=== PATIENT | male | born 1990 | race American Indian/Alaskan Native ===

== ENCOUNTER 2016-07-25 13:50 | Emergency (ER) | payer SELFPAY ==
[2016-07-25 14:09] VITALS: BP 128/95
--- NOTE | 2016-07-25 15:31 | Emergency Department Report ---
HPI - General Chief Complaint: Dental/Oral Time Seen by Provider: 07/25/16 15:28 - HPI HPI: Patient here complaining of toothache to the left back tooth. He said he had this before and he said he bit on something and just was already cracked and started complaining of left lower back to 10 out of 10. Pain is achy and he took a Klonopin medicine without any relief. Denies any swelling to face. Denies any fever or chills. Denies any sore throat, drooling, cough and or difficulty swallowing. ED Past Medical Hx - Past Medical History Previous Medical History?: Yes Hx Asthma: Yes - Surgical History Past Surgical History?: No - Family History Family history: diabetes, hypertension - Social History Smoking Status: Current Every Day Smoker Substance Use Type: Alcohol - Medications Home Medications: Home Medications Medication Instructions Recorded Confirmed Last Taken Type Amoxicillin [Amoxicillin TAB] 875 mg PO BID #20 tablet 07/25/16 Unknown Rx Ibuprofen [Motrin] 600 mg PO Q8H PRN #15 tablet 07/25/16 Unknown Rx ED Review of Systems ROS: Stated complaint: POSS INFECTED TOOTH/GUM PAIN Other details as noted in HPI Comment: All other systems reviewed and negative Constitutional: denies: chills, fever Eyes: denies: eye pain, vision change ENT: dental pain. denies: ear pain, throat pain, congestion Respiratory: no symptoms reported Cardiovascular: denies: chest pain, palpitations, edema, syncope Gastrointestinal: denies: nausea, vomiting Musculoskeletal: denies: back pain, arthralgia Skin: denies: rash Neurological: denies: headache, weakness, numbness, paresthesias, confusion, abnormal gait, vertigo Physical Exam - Physical Exam Vital Signs: Vital Signs 07/25/16 14:07 Temperature 98.4 F Pulse Rate 56 L Respiratory 16 Rate Blood Pressure 128/95 O2 Sat by Pulse 100 Oximetry General: This is a 26-year-old male well-nourished well-developed in no acute distress. Physical Exam: Head: Normocephalic atraumatic Mouth: Moist, no pharyngeal exudate or erythema. Uvula is midline and oral airway is patent. Positive gingival enlargement. dental tenderness tooth #32 with erythema. No induration or fluctuance. No facial swelling. No peritonsillar abscesses. No trismus, tongue is normal. Positive dental caries Neck: Supple, no C-spine tenderness, no tracheal deviation. Nontender to palpate. no adenopathy Ears: Bilateral TMs pearly payne .bilateral EAC without any redness swelling or drainage Eyes: Bilateral pupils equal and reactive to light, bilateral EOM intact. Bilateral sclera and conjunctiva without injection. Normal accommodation Nose: Mucosa moist, Nl mucosa. maxillary and frontal sinus non-tender to palpate. Lungs: Clear to auscultate bilaterally no rhonchi wheezes or rales. Normal work of breathing extremity; No CCE. +2 pulses. No neurovascular compromise Cardiovascular: S1-S2, regular rate rhythm. No murmurs. Skin: clean Dry and intact no rash no lesions Psych: Normal mood and behavior ED Course Vital Signs 07/25/16 14:07 Temperature 98.4 F Pulse Rate 56 L Respiratory 16 Rate Blood Pressure 128/95 O2 Sat by Pulse 100 Oximetry - Reevaluation(s) Reevaluation #1: 07/25/16 16:10 Patient with message to 2 times in the emergency room. ED Medical Decision Making - Medical Decision Making ED Course: Here complaining of toothache and with poor dental care. He has dental caries, gingival enlargement and cellulitis around tooth #32. Patient does not have a dentist and I instructed them that I will place him on antibiotic and pain medication but he will need to follow up with a dentist for discharge instruction paperwork for phone number and address this dentist. He was understanding the diagnosis and treatment plan and discharged home with prescription for Motrin and amoxicillin. Pt is referred to [facility] dental clinic. Received [place] 5/325 mg 2 tablets emergency room. Critical care attestation.: If time is entered above; I have spent that time in minutes in the direct care of this critically ill patient, excluding procedure time. ED Disposition Clinical Impression: Tooth ache, Dental caries, Oral cellulitis, Enlargement, gingival Disposition: DC-01 TO HOME OR SELFCARE Is pt being admited?: No Does the pt Need Aspirin: No Condition: Stable Instructions: Gingivitis (ED), Dental Caries (ED), Toothache (ED), Cellulitis ( ED) Additional Instructions: Please follow up with [facility] dental clinic as instructed take medication as instructed Listerine mouth wash to gargle and spit 3 times a day and please floss Prescriptions: Amoxicillin [Amoxicillin TAB] 875 mg PO BID #20 tablet Ibuprofen [Motrin] 600 mg PO Q8H PRN #15 tablet PRN Reason: Pain Referrals: [facility] [Outside] - 3-5 Days [facility] [Outside] - 3-5 Days Forms: Work/School Release Form(ED)
[2016-07-25] MEDS ORDERED: NORCO 5/325 PO ONE (16:09)
== END 2016-07-25 16:24 | disposition home or self-care (01) ==
LOC: ED 13:50
DX: K02.9 Dental caries, unspecified (principal); K06.1 Gingival enlargement; K12.2 Cellulitis and abscess of mouth; J45.909 Unspecified asthma, uncomplicated; F17.200 Nicotine dependence, unspecified, uncomplicated
CPT/HCPCS: 99282

== ENCOUNTER 2016-07-26 23:11 | Emergency (ER) | payer SELFPAY ==
[2016-07-27] MEDS ORDERED: NORCO 5/325 PO ONE (02:38)
--- NOTE | 2016-07-27 02:41 | Emergency Department Report ---
ED ENT HPI - General Chief complaint: Dental/Oral Stated complaint: JAW PAIN Source: patient Mode of arrival: Ambulatory Limitations: No Limitations - History of Present Illness Initial comments: 18-year-old male past medical history none presents complaining of one week of left-sided toothache. Patient states he was in the ED a few days ago prescribed Motrin and amoxicillin. Patient states that pain is slightly worse than usual. Denies any fever chills began. Since his denies any pus or blood drainage from mouth. Patient states that he is seeking out a dental appointment actively to remove a severely carried tooth. MD complaint: tooth pain Onset/Timin -: week(s) Time: 18:00 Location: tooth # Severity: moderate Severity scale (0 -10): 5 Quality: aching Consistency: constant Worsens with: eating Context- Dental: history of dental caries Associated Symptoms: toothache - Related Data Previous Rx's Medication Instructions Recorded Last Taken Type Amoxicillin [Amoxicillin TAB] 875 mg PO BID #20 tablet 07/25/16 Unknown Rx Ibuprofen [Motrin] 600 mg PO Q8H PRN #15 tablet 07/25/16 Unknown Rx Acetaminophen/Codeine [Tylenol 1 tab PO Q6H PRN #12 tab 07/27/16 Unknown Rx /Codeine # 3 tab] Benzocaine [Orajel Liquid 20%] 1 ml MM Q6HR PRN #1 bottle 07/27/16 Unknown Rx Chlorhexidine Mouthwash [Peridex] 118 ml MM BID #1 bottle 07/27/16 Unknown Rx Allergies Allergy/AdvReac Type Severity Reaction Status Date / Time No Known Allergies Allergy Verified 07/25/16 14:10 ED Dental HPI - General Chief complaint: Dental/Oral Stated complaint: JAW PAIN Source: patient Mode of arrival: Ambulatory Limitations: No Limitations - Related Data Previous Rx's Medication Instructions Recorded Last Taken Type Amoxicillin [Amoxicillin TAB] 875 mg PO BID #20 tablet 07/25/16 Unknown Rx Ibuprofen [Motrin] 600 mg PO Q8H PRN #15 tablet 07/25/16 Unknown Rx Acetaminophen/Codeine [Tylenol 1 tab PO Q6H PRN #12 tab 07/27/16 Unknown Rx /Codeine # 3 tab] Benzocaine [Orajel Liquid 20%] 1 ml MM Q6HR PRN #1 bottle 07/27/16 Unknown Rx Chlorhexidine Mouthwash [Peridex] 118 ml MM BID #1 bottle 07/27/16 Unknown Rx Allergies Allergy/AdvReac Type Severity Reaction Status Date / Time No Known Allergies Allergy Verified 07/25/16 14:10 ED Review of Systems ROS: Stated complaint: JAW PAIN Other details as noted in HPI Constitutional: denies: chills, fever Eyes: denies: eye pain, eye discharge, vision change ENT: dental pain. denies: ear pain, throat pain Respiratory: denies: cough, shortness of breath, wheezing Cardiovascular: denies: chest pain, palpitations Endocrine: no symptoms reported Gastrointestinal: denies: abdominal pain, nausea, diarrhea Genitourinary: denies: urgency, dysuria Musculoskeletal: denies: back pain, joint swelling, arthralgia Skin: denies: rash, lesions Neurological: denies: headache, weakness, paresthesias Psychiatric: denies: anxiety, depression Hematological/Lymphatic: denies: easy bleeding, easy bruising ED Past Medical Hx - Past Medical History Previous Medical History?: Yes Hx Asthma: Yes - Surgical History Past Surgical History?: No - Social History Smoking Status: Never Smoker Substance Use Type: Marijuana - Medications Home Medications: Home Medications Medication Instructions Recorded Confirmed Last Taken Type Amoxicillin [Amoxicillin TAB] 875 mg PO BID #20 tablet 07/25/16 Unknown Rx Ibuprofen [Motrin] 600 mg PO Q8H PRN #15 tablet 07/25/16 Unknown Rx Acetaminophen/Codeine [Tylenol 1 tab PO Q6H PRN #12 tab 07/27/16 Unknown Rx /Codeine # 3 tab] Benzocaine [Orajel Liquid 20%] 1 ml MM Q6HR PRN #1 bottle 07/27/16 Unknown Rx Chlorhexidine Mouthwash [Peridex] 118 ml MM BID #1 bottle 07/27/16 Unknown Rx ED Physical Exam - General Limitations: No Limitations General appearance: alert, in no apparent distress - Head Head exam: Present: atraumatic, normocephalic - Eye Eye exam: Present: normal appearance, PERRL, EOMI - ENT ENT exam: Present: mucous membranes moist - Expanded ENT Exam Expanded Teeth exam: Present: dental caries, dental tenderness # (tooth tenderness/ toothache at tooth #17 and 18) 1 - Dental Tenderness (multiple dental cavities here, no visible abscess no signs of Horacio's angina and no induration and floor of mouth or tongue) - Neck Neck exam: Present: normal inspection - Respiratory Respiratory exam: Present: normal lung sounds bilaterally. Absent: respiratory distress - Cardiovascular Cardiovascular Exam: Present: regular rate, normal rhythm. Absent: systolic murmur, diastolic murmur, rubs, gallop - GI/Abdominal GI/Abdominal exam: Present: soft, normal bowel sounds - Rectal Rectal exam: Present: deferred - Extremities Exam Extremities exam: Present: normal inspection - Back Exam Back exam: Present: normal inspection - Neurological Exam Neurological exam: Present: alert, oriented X3 - Psychiatric Psychiatric exam: Present: normal affect, normal mood - Skin Skin exam: Present: warm, dry, intact, normal color. Absent: rash ED Course Vital Signs 07/26/16 07/27/16 23:59 03:11 Temperature 99.1 F Pulse Rate 63 75 Respiratory 63 H 18 Rate Blood Pressure 120/71 116/79 [Right] O2 Sat by Pulse 100 99 Oximetry ED Medical Decision Making - Medical Decision Making A/P: Dental cavity 1-Motrin and amoxicillin, will add Orajel, short course Tylenol 3, Peridex mouthwash 2-patient advised to follow up as soon as possible for dental cavity. I advised patient that lack of follow-up and untreated dental cavity can result in infection to come his face and jaw and if left untreated can progress to sepsis and become lethal. Patient understood these instructions and agreed to follow-up on outpatient basis with dentist as soon as possible. 3-advised to return to ED [facility] for any significant bleeding pus drainage from oral cavity inability to tolerate by mouth, dyspnea shortness of breath muffled voice and/or stridor Critical care attestation.: If time is entered above; I have spent that time in minutes in the direct care of this critically ill patient, excluding procedure time. ED Disposition Clinical Impression: Pain, dental Disposition: DC-01 TO HOME OR SELFCARE Is pt being admited?: No Does the pt Need Aspirin: No Condition: Stable Instructions: Benzocaine (By mouth), Dental Caries (ED), Toothache (ED) Prescriptions: Acetaminophen/Codeine [Tylenol /Codeine # 3 tab] 1 tab PO Q6H PRN #12 tab PRN Reason: Pain Benzocaine [Orajel Liquid 20%] 1 ml MM Q6HR PRN #1 bottle PRN Reason: Toothache Chlorhexidine Mouthwash [Peridex] 118 ml MM BID #1 bottle Referrals: [facility] [Outside] - 3-5 Days Forms: Work/School Release Form(ED) Time of Disposition: 02:41
[2016-07-27 03:11] VITALS: BP 116/79
== END 2016-07-27 03:11 | disposition home or self-care (01) ==
LOC: ED 23:11
DX: K08.89 Other specified disorders of teeth and supporting structures (principal); J45.909 Unspecified asthma, uncomplicated; F12.10 Cannabis abuse, uncomplicated
CPT/HCPCS: 99282

== ENCOUNTER 2016-08-30 01:24 | Emergency (ER) | payer SELFPAY ==
--- NOTE | 2016-08-30 04:31 | Emergency Department Report ---
ED ENT HPI - General Chief complaint: Dental/Oral Stated complaint: TOOTHACHE W/LT JAW SWELLING Time Seen by Provider: 08/30/16 03:33 Source: patient Mode of arrival: Ambulatory Limitations: No Limitations - History of Present Illness Initial comments: Patient comes into the ER today with complaints of left lower tooth pain for the past 4 days. Patient denies any new injury. Patient states that he was here approximately one month ago for the same complaint. Patient states that the medicine that was given here last time did help but he never had the teeth extracted. Patient does state that he went to the dentist and when he was seen by the dentist he was told to come back, and all the swelling was gone. Patient never went back after the swelling was gone and now he believes it is coming back again. Patient states that his left jaw started swelling about 3 days ago. Patient denies any fever, body aches, chills. MD complaint: tooth pain - Related Data Previous Rx's Medication Instructions Recorded Last Taken Type Amoxicillin [Amoxicillin TAB] 875 mg PO BID #20 tablet 07/25/16 Unknown Rx Ibuprofen [Motrin] 600 mg PO Q8H PRN #15 tablet 07/25/16 Unknown Rx Acetaminophen/Codeine [Tylenol 1 tab PO Q6H PRN #12 tab 07/27/16 Unknown Rx /Codeine # 3 tab] Benzocaine [Orajel Liquid 20%] 1 ml MM Q6HR PRN #1 bottle 07/27/16 Unknown Rx Chlorhexidine Mouthwash [Peridex] 118 ml MM BID #1 bottle 07/27/16 Unknown Rx Acetaminophen/Codeine [Tylenol 1 tab PO Q6H PRN #15 tab 08/30/16 Unknown Rx /Codeine # 3 tab] Amoxicillin/K Clav Tab [Augmentin 1 tab PO Q12HR #20 tab 08/30/16 Unknown Rx 875 mg] Chlorhexidine Mouthwash [Peridex] 118 ml MM BID #1 bottle 08/30/16 Unknown Rx Allergies Allergy/AdvReac Type Severity Reaction Status Date / Time No Known Allergies Allergy Verified 07/25/16 14:10 ED Dental HPI - General Chief complaint: Dental/Oral Stated complaint: TOOTHACHE W/LT JAW SWELLING Time Seen by Provider: 08/30/16 03:33 Source: patient Mode of arrival: Ambulatory Limitations: No Limitations - Related Data Previous Rx's Medication Instructions Recorded Last Taken Type Amoxicillin [Amoxicillin TAB] 875 mg PO BID #20 tablet 07/25/16 Unknown Rx Ibuprofen [Motrin] 600 mg PO Q8H PRN #15 tablet 07/25/16 Unknown Rx Acetaminophen/Codeine [Tylenol 1 tab PO Q6H PRN #12 tab 07/27/16 Unknown Rx /Codeine # 3 tab] Benzocaine [Orajel Liquid 20%] 1 ml MM Q6HR PRN #1 bottle 07/27/16 Unknown Rx Chlorhexidine Mouthwash [Peridex] 118 ml MM BID #1 bottle 07/27/16 Unknown Rx Acetaminophen/Codeine [Tylenol 1 tab PO Q6H PRN #15 tab 08/30/16 Unknown Rx /Codeine # 3 tab] Amoxicillin/K Clav Tab [Augmentin 1 tab PO Q12HR #20 tab 08/30/16 Unknown Rx 875 mg] Chlorhexidine Mouthwash [Peridex] 118 ml MM BID #1 bottle 08/30/16 Unknown Rx Allergies Allergy/AdvReac Type Severity Reaction Status Date / Time No Known Allergies Allergy Verified 07/25/16 14:10 ED Review of Systems ROS: Stated complaint: TOOTHACHE W/LT JAW SWELLING Other details as noted in HPI Constitutional: denies: chills, fever Eyes: denies: eye pain, eye discharge, vision change ENT: dental pain. denies: ear pain, throat pain, hearing loss, epistaxis, congestion Respiratory: denies: cough, shortness of breath, wheezing Cardiovascular: denies: chest pain, palpitations Endocrine: no symptoms reported Gastrointestinal: denies: abdominal pain, nausea, diarrhea Genitourinary: denies: urgency, dysuria Musculoskeletal: denies: back pain, joint swelling, arthralgia Skin: denies: rash, lesions Neurological: denies: headache, weakness, paresthesias Psychiatric: denies: anxiety, depression Hematological/Lymphatic: denies: easy bleeding, easy bruising ED Past Medical Hx - Past Medical History Previous Medical History?: Yes Hx Asthma: Yes - Social History Smoking Status: Current Every Day Smoker - Medications Home Medications: Home Medications Medication Instructions Recorded Confirmed Last Taken Type Amoxicillin [Amoxicillin TAB] 875 mg PO BID #20 tablet 07/25/16 Unknown Rx Ibuprofen [Motrin] 600 mg PO Q8H PRN #15 tablet 07/25/16 Unknown Rx Acetaminophen/Codeine [Tylenol 1 tab PO Q6H PRN #12 tab 07/27/16 Unknown Rx /Codeine # 3 tab] Benzocaine [Orajel Liquid 20%] 1 ml MM Q6HR PRN #1 bottle 07/27/16 Unknown Rx Chlorhexidine Mouthwash [Peridex] 118 ml MM BID #1 bottle 07/27/16 Unknown Rx Acetaminophen/Codeine [Tylenol 1 tab PO Q6H PRN #15 tab 08/30/16 Unknown Rx /Codeine # 3 tab] Amoxicillin/K Clav Tab [Augmentin 1 tab PO Q12HR #20 tab 08/30/16 Unknown Rx 875 mg] Chlorhexidine Mouthwash [Peridex] 118 ml MM BID #1 bottle 08/30/16 Unknown Rx ED Physical Exam - General Limitations: No Limitations General appearance: alert, in no apparent distress - Head Head exam: Present: atraumatic, normocephalic, other (left mandibular swelling without redness) - Eye Eye exam: Present: normal appearance, PERRL, EOMI. Absent: periorbital swelling , periorbital tenderness - ENT ENT exam: Present: mucous membranes moist, TM's normal bilaterally, normal external ear exam, other (the left lower molar dental decay to multiple teeth. Gum swelling and inflammation consistent with infection.) - Neck Neck exam: Present: normal inspection, full ROM. Absent: tenderness, lymphadenopathy - Respiratory Respiratory exam: Present: normal lung sounds bilaterally. Absent: respiratory distress - Cardiovascular Cardiovascular Exam: Present: regular rate, normal rhythm, normal heart sounds. Absent: systolic murmur, diastolic murmur, rubs, gallop - GI/Abdominal GI/Abdominal exam: Present: soft, normal bowel sounds - Rectal Rectal exam: Present: deferred - Extremities Exam Extremities exam: Present: normal inspection - Back Exam Back exam: Present: normal inspection - Neurological Exam Neurological exam: Present: alert, oriented X3 - Psychiatric Psychiatric exam: Present: normal affect, normal mood - Skin Skin exam: Present: warm, dry, intact, normal color. Absent: rash ED Course Vital Signs 08/30/16 02:24 Temperature 98.2 F Pulse Rate 57 L Respiratory 18 Rate Blood Pressure 121/83 O2 Sat by Pulse 99 Oximetry ED Medical Decision Making - Medical Decision Making Patient is nontoxic and hemodynamically stable. Previous records from ER reviewed and discussed with patient. Restart patient on medications to calm down his infection but I have strongly encourage patient to follow up with the dental clinics. I will give patient a list of free dental clinics and he is to follow-up with him. Patient voiced understanding and is in agreement with treatment plan. Patient is stable for discharge. Critical care attestation.: If time is entered above; I have spent that time in minutes in the direct care of this critically ill patient, excluding procedure time. ED Disposition Clinical Impression: Pain, dental, Dental abscess Disposition: DC- TO HOME OR SELFCARE Is pt being admited?: No Does the pt Need Aspirin: No Condition: Good Instructions: Dental Abscess (ED), Toothache (ED) Prescriptions: Acetaminophen/Codeine [Tylenol /Codeine # 3 tab] 1 tab PO Q6H PRN #15 tab PRN Reason: Pain Amoxicillin/K Clav Tab [Augmentin 875 mg] 1 tab PO Q12HR #20 tab Chlorhexidine Mouthwash [Peridex] 118 ml MM BID #1 bottle Referrals: PRIMARY CARE, [Primary Care Provider] - 3-5 Days [facility] [Outside] - 3-5 Days Time of Disposition: 04:31
[2016-08-30 04:38] VITALS: BP 120/80
== END 2016-08-30 04:37 | disposition home or self-care (01) ==
LOC: ED 01:24
DX: K02.9 Dental caries, unspecified (principal); K04.7 Periapical abscess without sinus; J45.909 Unspecified asthma, uncomplicated; F17.200 Nicotine dependence, unspecified, uncomplicated
CPT/HCPCS: 99282

== ENCOUNTER 2018-07-26 06:34 | Emergency (ER) | payer SELFPAY ==
[2018-07-26 06:40] VITALS: BP 124/75
[2018-07-26] MEDS ORDERED: IBUPROFEN PO ONE (07:17)
[2018-07-26] MEDS ORDERED: NACL 0.9% 1000 ML 1,000 ML IV ONE (07:25)
[2018-07-26] MEDS ORDERED: CLEOCIN 600 MG/50 mL 600 MG/50 ML BAG IV ONE (07:25)
[2018-07-26] MEDS ORDERED: SOLU-Medrol IV ONE (07:26)
[2018-07-26] MEDS ORDERED: NORCO 5/325 PO ONE (07:27)
[2018-07-26 08:10] LABS: BUN/Creatinine Ratio 8; Blood Urea Nitrogen 8 mg/dL (9-20); Calcium 9.4 mg/dL (8.4-10.2); Hemolysis Index 9
[2018-07-26 08:14] LABS: Hematocrit 45.3 % (35.5-45.6); Mean Corpuscular HGB Conc 33 % (32-34); Mean Corpuscular Volume 86 fl (84-94); Platelet Count 185 K/mm3 (140-440); Red Blood Count 5.29 M/mm3 (3.65-5.03); Red Cell Distribution Width 13.8 % (13.2-15.2)
--- NOTE | 2018-07-26 08:19 | Emergency Department Report ---
HPI - General Chief Complaint: Dental/Oral Time Seen by Provider: 07/26/18 07:16 - HPI HPI: Patient is a 28-year-old male that presents to the ER with left mandibular swelling. He states that he's had dental abscess here before and has not followed up with his dentist. Patient is ambulatory controlling secretions with stable vital signs. He has no fever and denies any fever or chills. He is able to take by mouth. Pain is a constant aching of her left lower molar area. ED Past Medical Hx - Past Medical History Previous Medical History?: Yes Hx Asthma: Yes - Surgical History Past Surgical History?: No - Social History Smoking Status: Current Some Day Smoker Substance Use Type: Alcohol - Medications Home Medications: Home Medications Medication Instructions Recorded Confirmed Last Taken Type Clindamycin [Clindamycin CAP] 300 mg PO Q8H #30 cap 07/26/18 Unknown Rx predniSONE [Deltasone] 20 mg PO DAILY #5 tablet 07/26/18 Unknown Rx traMADol [Ultram] 50 mg PO Q6HR PRN #10 tablet 07/26/18 Unknown Rx ED Review of Systems ROS: Stated complaint: TOOTHACHE WITH FACIAL SWELLING Other details as noted in HPI Comment: All other systems reviewed and negative Physical Exam - Physical Exam Vital Signs: Vital Signs 07/26/18 07/26/18 06:38 08:13 Temperature 99.6 F Pulse Rate 80 Respiratory 18 18 Rate Blood Pressure 124/75 O2 Sat by Pulse 97 Oximetry Physical Exam: WDWN patient in NAD VS per RN flow sheet Alert and oriented to person, place and time. S1-S2. No S3 or S4. No systolic or diastolic murmur. No JVD. No pitting edema. Lungs clear to auscultation bilaterally anteriorly and posteriorly. Abdomen soft nontender bowel sounds x4 Moves all extremities well. GINV ABSCESS OVER 32 AND 33. NO POST PHARY. ABSCESS; NO LUDWIGS ON EXAM TAKING PO; CONTROLLING SECRETIONS Mood and affect appropriate. ED Course Vital Signs 07/26/18 07/26/18 06:38 08:13 Temperature 99.6 F Pulse Rate 80 Respiratory 18 18 Rate Blood Pressure 124/75 O2 Sat by Pulse 97 Oximetry ED Medical Decision Making - Lab Data Result diagrams: 07/26/18 07:36 07/26/18 07:36 - Radiology Data Radiology results: report reviewed, image reviewed - Medical Decision Making labs noted ct noted abscess broke while in ER medicated with IV clinda and solumedrol long discussion with pt about follow up referrals given goodrx coupon given to pt for po clinda dc home with dc plan of care. Lab Results 07/26/18 07/26/18 Range/Units 07:36 07:36 WBC 10.6 (4.5-11.0) K/mm3 RBC 5.29 H (3.65-5.03) M/mm3 Hgb 15.0 (11.8-15.2) gm/dl Hct 45.3 (35.5-45.6) % MCV 86 (84-94) fl MCH 28 (28-32) pg MCHC 33 (32-34) % RDW 13.8 (13.2-15.2) % Plt Count 185 (140-440) K/mm3 Sodium 138 (137-145) mmol/L Potassium 3.6 (3.6-5.0) mmol/L Chloride 96.7 L (98-107) mmol/L Carbon Dioxide 25 (22-30) mmol/L Anion Gap 20 mmol/L BUN 8 L (9-20) mg/dL Creatinine 1.0 (0.8-1.5) mg/dL Estimated GFR > 60 ml/min BUN/Creatinine Ratio 8 % Glucose 105 H (75-100) mg/dL Calcium 9.4 (8.4-10.2) mg/dL Vital Signs 07/26/18 07/26/18 07/26/18 06:38 08:13 09:13 Temperature 99.6 F Pulse Rate 80 Respiratory 18 18 18 Rate Blood Pressure 124/75 O2 Sat by Pulse 97 Oximetry 07/26/18 09:16 Temperature Pulse Rate Respiratory 18 Rate Blood Pressure O2 Sat by Pulse Oximetry MEDICATED WITH IV ANTIBIOTICS AND STEROIDS CT NOTED LABS NOTED VSS ABC INTACT CONTROLLING SECRETIONS ABSCESS BROKE WHILE PT IN ER. DC HOME WITH DETAILED INSTRUCTIONS- [place] [facility] [place] [facility] AND [facility]. GIVEN [employer]RX COUPON FOR RX WHICH HE STATES HE CAN GET. DC HOME WITH FAMILY Critical care attestation.: If time is entered above; I have spent that time in minutes in the direct care of this critically ill patient, excluding procedure time. ED Disposition Clinical Impression: Pain, dental, Mandibular abscess Disposition: DC-01 TO HOME OR SELFCARE Is pt being admited?: No Does the pt Need Aspirin: No Condition: Stable Instructions: Dental Caries (ED) Additional Instructions: DIET TOLERATED MEDS ORDERED TODAY IN ER FOLLOW INSTRUCTIONS ON THE BOTTLE FOLLOW UP dentist [facility] ACTIVITY TOLERATED MOTRIN OR TYLENOL FOR PAIN OR FEVER RETURN TO THE ER FOR WORSENING SYMPTOMS NOT RELIEVED BY YOUR MEDICATIONS. Prescriptions: Clindamycin [Clindamycin CAP] 300 mg PO Q8H #30 cap predniSONE [Deltasone] 20 mg PO DAILY #5 tablet traMADol [Ultram] 50 mg PO Q6HR PRN #10 tablet PRN Reason: Pain Referrals: [facility] [Outside] - 3-5 Days [facility] [Outside] - 3-5 Days Time of Disposition: 10:22
--- NOTE | 2018-07-26 09:24 | Cat Scan Report ---
CT scan of the neck with contrast: History: Mandibular abscess. Findings: The laryngeal and tracheal air column appears normal. Normal pre-and paravertebral soft tissue. The vascular structures appears normal. There is swelling noted over the left masseter muscle and the adjacent left suprahyoid. Areas of low attenuation identified within muscle probably suggestive of early abscess formation. Subcutaneous tissues appears swollen. No evidence of adenopathy. The submandibular gland and the parotid gland appears normal. Impression: Findings as detailed above. Clinical correlation is advised
[2018-07-26] MEDS ORDERED: MARCAINE 0.5% INFILTRATI ONE (09:39)
[2018-07-26] MEDS ORDERED: XYLOCAINE 2% INFILTRATI ONE (09:39)
[2018-07-26] MEDS ORDERED: PERIDEX MM ONE (10:00)
== END 2018-07-26 10:40 | disposition home or self-care (01) ==
LOC: ED 06:34
DX: M27.2 Inflammatory conditions of jaws (principal); F17.200 Nicotine dependence, unspecified, uncomplicated; J45.909 Unspecified asthma, uncomplicated
CPT/HCPCS: 36415; 70491; 80048; 85027; 96361; 96365; 96375; 99284; J2930; J7030; Q9967